=== PATIENT | female | born 2000 | race African-American/Black ===

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

== ENCOUNTER 2020-05-09 22:35 | Emergency (ER) | payer MEDICAID, MEDICARE | END 2020-05-10 00:33 | disposition home or self-care (01) | LOC: ERS 22:35 | DX: L60.0 Ingrowing nail (principal); F41.9 Anxiety disorder, unspecified; I10 Essential (primary) hypertension | CPT/HCPCS: 99283 ==